=== PATIENT | female | born 1955 | race Caucasian/White ===

== ENCOUNTER → 2016-10-02 | Outpatient (CLI) | payer BC ==
[~2016-10-02] MED LIST: ALAVERT10 M1 PO; AMBIEN PO; AMBIEN10 MG PO; ASPIRIN81 M2 PO; ASPIRINEC PO; BENICAR HCT 20-1 TA1 PO; BENICAR HCT 40-1 TA1 PO; CALCIUM + D 6001 TA1 PO; CERTAGEN PO; CLARITIN10 M3 PO; COUMADIN4 MG PO; COUMADIN5 MG PO; CRESTOR PO; CYANOCOBALAM1000 MCG PO; DEXFOL PO; DIOVAN HCT 160-1 TAB PO; ECOTRIN325 MG PO; GARCINIA CAMBO1 EACH PO; GLUCOSAMIN-CHO1 EACH PO; GLUCOSAMINE & C1 CAP PO; HAIR, SKIN & N1 EAC1 PO; HYDROCODON-ACE1 EAC5 PO; MAGNESIUM250 M1 PO; MOBIC15 MG PO; MULTI-VITAMIN1 EAC1 PO; NORCO 10-325 TA1 TAB PO; OSPHENA60 MG PO; PREMARIN VAG CR45 GM TOP; PREMARIN VAG CR45 GM VAG; PROBIOTIC1 EAC5 PO; STOOL SOFTENER100 M1 PO; TRAMADOL HCL50 M1 PO; VAGIFEM10 MCG VG; VITAMIN C PO; VITAMIN C1000 M2 PO; VOLTAREN75 MG PO
--- NOTE | ~2016-10-02 | CO ---
Unit #: [id number] #: [id number] Patient: RADHA BECKER [id number] [address] [place], [place] [address] [id number] O MR#: [id number] NAME: RADHA BECKER ROOM: Age: 60 Sex: F Admission Date: 10/02/2016 : 1955 Attending Physician: Andrea Baxter M.D. Primary Care Physician: Sabino Tello M.D. Consultation Date: 10/02/2016 CONSULTATION REPORT REASON FOR CONSULTATION Preoperative medical evaluation prior to conversion of unicompartmental knee arthroplasty to right total knee arthroplasty, scheduled by Dr. Baxter for 10/11/2016. HISTORY OF PRESENT ILLNESS The patient is a 60-year-old female, who presents to preprocedural screening for the reasons indicated above. Other than pain in the right knee, she has no other complaints at this time. She has been evaluated by Dr. Baxter and scheduled for the above-referenced procedure. She denies history of myocardial infarction, congestive heart failure, CVA, TIA, diabetes and/or renal failure. She denies shortness of air, dyspnea on exertion, PND, orthopnea, or sleep apnea. Denies lightheadedness, dizziness, vertigo, presyncope, syncope, and/or chronic palpitations. Primary care physician is Dr. Tello. Her last dental exam was 08/2016 with a negative report per the patient. The patient takes antibiotics prior to dental procedure secondary to history of left total knee arthroplasty. PAST MEDICAL HISTORY 1. Latex allergy. 2. Rash. 3. Heart murmur, status post workup approximately two years ago by Dr. Manuel without recommendations for further evaluation. 4. Irritable bowel syndrome with diarrhea. 5. Hyperlipidemia. 6. History of cervical cancer. 7. Insomnia. 8. Hypertension. 9. Allergic rhinitis. PAST SURGICAL HISTORY Colonoscopy for surveillance secondary to first-degree family member with colon cancer, negative results per the patient's report. ALLERGIES Latex allergy; medication allergies; iodinated contrast media, oral and IV, causes a rash. CURRENT MEDICATIONS Crestor 10 mg p.o. at bedtime, aspirin 81 mg p.o. daily, stool softener 100 mg p.o. at bedtime, vitamin C 1000 mg p.o. daily, Ambien 10 mg p.o. at bedtime p.r.n. sleep, Benicar/hydrochlorothiazide 20/12.5 mg tablet one p.o. in the evening, Claritin 10 mg p.o. at bedtime, cyanocobalamin 1000 Unit #: [id number] #: [id number] Patient: RADHA BECKER R mcg p.o. daily, probiotic one capsule p.o. daily, Mobic 15 mg p.o. at bedtime, magnesium 250 mg p.o. daily. 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 She has been an employee at this facility for 40 years. She denies tobacco use or illicit drug use. Consumes three alcoholic drinks weekly. FAMILY HISTORY Per review of Dr. Baxter's office note and confirmation with the patient, father had a history of heart disease and mother had a history of colon cancer. REVIEW OF SYSTEMS Right knee pain and intermittent dependent edema of bilateral lower extremities, resolved with medium compression hose, which she purchases [id number]. A 10-point review of systems is performed and otherwise negative except as indicated under history of present illness and past medical history above. PHYSICAL EXAMINATION GENERAL: A 60-year-old female, awake and alert, in no acute distress. VITAL SIGNS: Temperature 98.6, heart rate 86, respiratory rate 16, blood pressure 143/92, oxygen saturation 99% on room air. HEENT: Atraumatic, normocephalic. Sclerae anicteric. No discharge from eyes, ears, or nares. LYMPH: No preauricular, postauricular, tonsillar, submental, anterior-posterior cervical, supra or infraclavicular adenopathy. ENDOCRINE: No thyromegaly, thyroid nodules, or tenderness. RESPIRATORY: Clear to auscultation in all molina bilaterally without wheezes, rhonchi, or rales. CARDIOVASCULAR: S1, S2. Regular rate and rhythm without murmur or rub. GI: Bowel sounds are positive x4. Soft, nontender, nondistended. EXTREMITIES: No edema, cyanosis, or clubbing. MUSCULOSKELETAL: Strength 5/5 in all extremities bilaterally to flexion and extension. Ambulatory. No obvious muscle atrophy. NEUROLOGIC: Alert and oriented x3. Speech clear. Cranial nerves II through XII are grossly intact. Follows instructions. DIAGNOSTIC STUDIES LABORATORY RESULTS: WBC 5.5, hemoglobin 13.3, hematocrit 40.3, platelet count 293,000. Sodium 140, potassium 4.0, chloride 105, CO2 of 28, glucose 87, BUN 26, creatinine 0.7, calcium 9.0, AST 17, ALT 14, alkaline phosphatase 74, bilirubin total 1.0, total protein 6.7, albumin 4.2. PT 9.9, INR 0.9. Urinalysis; leukocyte esterase trace, nitrite negative. Urine culture not indicated. Blood type O positive. Antibody screen negative. MRSA screen report pending at this time. IMAGING STUDIES: Two-view chest x-ray report pending at this time. CARDIOVASCULAR STUDIES: 12-lead EKG; normal sinus rhythm, low voltage QRS. Borderline ECG tracing reviewed by me. Confirmed report pending at this time. IMPRESSION The patient is a 52-year-old female, who presents to Unit #: [id number] #: [id number] Patient: FRANK BECKERY Hillary preprocedural screening for; 1. Preoperative medical evaluation prior to conversion of unicompartmental knee arthroplasty to right total knee arthroplasty. The patient's [place] Revised Cardiac Risk Index is equal to 0.4%. This represents the patient's perioperative risk of cardiac , fatal or nonfatal myocardial infarction, cardiopulmonary arrest, arrhythmias and/or pulmonary edema. This has been discussed in detail with the patient and she wishes to proceed with surgery as scheduled at this time. 2. History of waking up during surgery. This has been discussed with the patient. She plans to discuss this in detail with her anesthesiologist prior to surgical procedure. 3. Latex allergy. Latex free products will be utilized in care of this patient. 4. History of heart murmur, status post workup from Dr. Manuel. The patient's heart murmur is not audible upon examination today. The patient is asymptomatic. 5. Irritable bowel syndrome with diarrhea, controlled at this time. 6. Hyperlipidemia. 7. History of cervical cancer without history of chemotherapy or radiation therapy. 8. Insomnia. 9. Hypertension. Blood pressure is elevated, but we will monitor the patient's blood pressure perioperatively and adjust medications accordingly. 10. Health maintenance. The patient's last dental exam was in 08/2016. She states a letter of dental clearance will be sent to Dr. Baxter's office. Thank you for allowing us to participate in the care of this patient. We will gladly follow her for postop medical management pending order of Dr. Baxter. Dictated by... Nancy Engle A.P.R.N. for Ileana Saldana/tracy TD: 10/03/2016 05:27 JOB #: [id number] CONSULTATION REPORT Page 1 of 1 X Nancy Engle ART INSTRUCTOR X CONSULTATION REPORT
--- NOTE | ~2016-10-02 | EKG ---
PATIENT: RADHA BECKER UNIT #: [id number] Ventricular Rate: 84 BPM Atrial Rate: 84 BPM P-R Interval: 164 ms QRS Duration: 80 ms Q-T Interval: 388 ms QTC Calculation(Bezet): 458 ms P Atkinson: 62 degrees Calculated R Atkinson: 39 degrees Calculated T Atkinson: 38 degrees Diagnosis Line: Normal sinus rhythm Diagnosis Line: Low voltage QRS Diagnosis Line: Borderline ECG Diagnosis Line: When compared with ECG of 21-DEC-2014 08:20, Diagnosis Line: No significant change was found Diagnosis Line: Confirmed by SERA ARGUETA MD ([id number]) on 10/02/2016 Diagnosis Line: 11:00:36 PM INTERPRETING MD: ELLIE SERRANO
--- NOTE | ~2016-10-02 | CR63 ---
[facility] A Service of [facility] RADIOLOGY TEXT RESULTS PATIENT: RADHA BECKER LOCATION: [facility] : [birth year] UNIT #: [id number] AGE: [address]: Andrea Baxter MD SEX: F ORDER DR: [id number] [facility] [address] [place], [place] [address] [id number] O MR#: [id number] Acc #: [id number] NAME: RADHA BECKER : 1955 SEX: F STUDY DATE/TIME: 10/02/2016 9:34 UNIT: [facility] ROOM: STUDY DESCRIPTION: CR Chest 2 View Attending Physician: Andrea Baxter M.D. Referring Physician: Andrea Baxter M.D. Ordering Physician: Andrea Baxter M.D. Primary Care Physician: Sabino Tello M.D. 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 Preop hardware conversion to total knee prosthesis. Benign essential hypertension. FINDINGS PA and lateral examination of the chest upright shows a good expansion of the parenchyma with a normal distribution of the pulmonary vascularity. There is no indication of congestion, effusion, infiltrate, tumor, or nodular density. The pleural reflections and diaphragmatic contours are normal. The cardiac silhouette and mediastinal anatomy is within normal limits. IMPRESSION Normal chest. Dictated by... Alec Rivera M.D. THIS IS AN ELECTRONICALLY VERIFIED REPORT Alec Rivera M.D. at 10/04/2016 8:17 AM MARTÍNEZ/mg TD: 10/02/2016 17:03 JOB #: [id number] MEDICAL IMAGING REPORT Page 1 of 1 COPY
[2016-10-02 08:27] LABS: HEMATOCRIT 40.3 % (35.0-45.0); HEMOGLOBIN 13.3 gm/dL (12.0-16.0); MEAN CELL VOLUME 89.5 FL (83-96); MEAN CORPUSCULAR HEMOGLOBIN 29.6 PG (28-34); MEAN CORPUSCULAR HGB CONC 33.1 g/dL (30-36); MEAN PLATELET VOLUME 7.4 FL (6.5-11.5); RED BLOOD COUNT 4.5 X10e (3.90-5.30); RED CELL DISTRIBUTION WIDTH 13.1 % (11.0-15.5); WHITE BLOOD COUNT 5.5 X10e3 (4.0-10.5)
[2016-10-02 08:31] LABS: URINE APPEARANCE CLEAR; URINE BILIRUBIN NEG (NEG); URINE BLOOD TRACE (NEG); URINE COLOR YELLOW; URINE GLUCOSE NEG (NEG); URINE KETONE NEG (NEG); URINE LEUKOCYTE ESTERASE TRACE (NEG); URINE NITRATE NEG (NEG); URINE PH 5.5 (5-8); URINE PROTEIN NEG (NEG); URINE SPECIFIC GRAVITY 1.024 (1.003-1.035); URINE UROBILINOGEN 0.2 MG/DL (NEG)
[2016-10-02 08:35] LABS: URBCS1 AUWI 0-2 /[HPF] (0-2); URINE BACTERIA AUWI NEG (NEGATIVE); URINE SQUAMOUS EPITHELIAL CELL NONE SEEN /[HPF]
[2016-10-02 08:40] LABS: INR 0.9; PROTHROMBIN TIME (PATIENT) 9.9 SECONDS (9.6-11.5)
[2016-10-02 08:42] LABS: CULTURE INDICATED? NO
[2016-10-02 08:56] LABS: ALBUMIN SERUM 4.2 g/dL (3.5-5.0); BUN/CREATININE RATIO 37.14; CREATININE SERUM 0.7 mg/dL (0.6-1.4); GLOM FILT RATE Estimated 92.9 mL/min (>60); PROTEIN TOTAL SERUM 6.7 g/dL (6.0-8.3); URINE SOURCE CLEAN CATCH
== END | disposition home or self-care (01) ==
LOC: CAMB 08:04
PROVIDERS: Orthopaedic Surgery
DX: Z01.818 Encounter for other preprocedural examination (principal); M17.11 Unilateral primary osteoarthritis, right knee; T84.092A Other mechanical complication of internal right knee prosthesis, initial encounter; K58.0 Irritable bowel syndrome with diarrhea; E78.5 Hyperlipidemia, unspecified; G47.00 Insomnia, unspecified; I10 Essential (primary) hypertension; Z88.8 Allergy status to other drugs, medicaments and biological substances
CPT/HCPCS: 36415; 71020; 80053; 81003; 85027; 85610; 86850; 86900; 86901; 87070; 93005

== ENCOUNTER 2016-10-11 05:36 | Inpatient (IN) | payer BC ==
--- NOTE | ~2016-10-11 | DS ---
Unit #: [id number] #: [id number] Patient: RADHA BECKER [id number] [facility]. [place], [place] [address] [id number] I MR#: [id number] NAME: RADHA BECKER ROOM: 456 Age: 60 Sex: F Admission Date: 10/11/2016 : 1955 Discharge Date: 10/12/2016 Attending Physician: Andrea Baxter M.D. Referring Physician: Andrea Baxter M.D. Primary Care Physician: Sabino Tello M.D. DISCHARGE SUMMARY PROCEDURES PERFORMED Conversion unicompartmental replacement to right total knee. HOSPITAL COURSE The patient was admitted on 10/11/2016 and taken to the operating room, where she underwent the above procedure. Postoperatively she had a moderate amount of pain. Her neurovascular exam is intact. The dressing is intact. She will do therapy this morning and be discharged home later today as long as her pain is under control. Her hemoglobin is 11.5, INR 1.4. DISCHARGE MEDICATION She will be discharged on 5 mg of Coumadin daily. FOLLOWUP 1. Will check her pro time tomorrow and Sunday and adjust the dose appropriately. 2. Her dinah are to be removed two weeks postoperative. ACTIVITY She is weightbearing as tolerated. DISCHARGE CONDITION Improved. Dictated by... Ileana Sadler/nikolai TD: 10/12/2016 12:18 JOB #: [id number] Unit #: [id number] #: [id number] Patient: RADHA BECKER DISCHARGE SUMMARY Page 1 of 1 X Andrea Baxter MD DISCHARGE SUMMARY
--- NOTE | ~2016-10-11 | OR ---
Unit #: [id number] #: [id number] Patient: RADHA BECKER [id number] [address] [place], [place] [address] [id number] I MR#: [id number] NAME: RADHA BECKER ROOM: 456 Date of Procedure: 10/11/2016 Admission Date: 10/11/2016 Surgeon: Andrea Baxter M.D. : 1955 Attending Physician: Andrea Baxter M.D. Referring Physician: Andrea Baxter M.D. Primary Care Physician: Sabino Tello M.D. OPERATIVE REPORT PREOPERATIVE DIAGNOSIS Failed unicompartmental knee, right knee. POSTOPERATIVE DIAGNOSIS Failed unicompartmental knee, right knee. PROCEDURE PERFORMED Conversion to a right total knee. ASSISTANTS Concetta Bird and Marly Anthony. ANESTHESIA Adductor canal block plus general. ESTIMATED BLOOD LOSS 100 to 150 mL. INDICATIONS FOR PROCEDURE This is a 60-year-old, who had an unicompartmental knee done and she has gone on to develop lateral compartment arthritis. She is brought to the hospital today for conversion to a right total knee. DESCRIPTION OF PROCEDURE The patient was brought to the operating room, given an adductor canal block and 2 g of Kefzol. The Kefzol will be continued postop, but discontinued within 23 hours the start time of surgery. She was then given a general anesthetic. Tourniquet was placed around the right thigh. The right leg was prepped and draped in a sterile fashion. The previous skin incision was used extended slightly proximally and distally. The subcutaneous dissected away and a medial arthrotomy was performed. Clear fluid was encountered. This was cultured. We then subluxed the patella laterally. The lateral compartment had exposed bone. The medial compartment and the tibial and femoral components were in good position and were not loose. We then removed the femoral component with a 0.5-inch straight osteotome. Once this was done, the tibial component was removed by using the oscillating saw and cutting it just below the component. The intramedullary guide was used and a 6-degree valgus cut was made on the distal femur. The femur was sized at a 3. The anterior-posterior cutting block applied. Rotation was checked in the knee. Anterior and posterior cuts were made along with the chamfer cuts. Proximal tibial cut was made and it was sized at a 2.5. Trial femur was applied. The drill holes were Unit #: [id number] #: [id number] Patient: RADHA BECKER made for lugs on the femoral component. Trial tibia was applied. We started with a 10 insert, but quickly went to a 12.5. This gave us excellent stability in extension and flexion. Rotation of the tibia was marked and the external alignment guide showed appropriate alignment of the limb. The patella was grasped with 2 towel clips, measured 20 mm thick, cut smooth at 13, and a 35 patella was the appropriate size. The 3 drill holes were made. Trial patella applied and it tracked properly. We then removed all the trials, used the drill and punch for the tibial tray. The knee was irrigated and dried while the cement was mixed. Then, all 3 components were cemented simultaneously. Once again, it was a size 3 femur, size 2.5 tibial tray, and a 35 patella from the Elimiuy PFC Sigma Knee system. After the cement was hardened, it was judged that the 12.5 insert was the appropriate thickness, so this was opened and applied. The periosteum was injected with ropivacaine as was the posterior capsule prior to positioning the final insert. The tourniquet was released. Hemostasis was obtained. The wound was irrigated with a bacitracin wash and Betadine wash. The rest of the ropivacaine mixture was injected and then the wound was closed using 0 Ethibond in the arthrotomy, 0 and 2-0 Vicryl in the subcutaneous, and dinah in the skin. Dictated by... Ileana Sadler/tracy TD: 10/16/2016 22:19 JOB #: [id number] OPERATIVE REPORT Page 1 of 1 X Andrea Baxter MD PROCEDURE OPERATIVE NOTE
[~2016-10-11 05:36] MED LIST changes: -AMBIEN10 MG PO; -ASPIRIN81 M2 PO; -CLARITIN10 M3 PO; -COUMADIN5 MG PO; -CRESTOR PO; -CYANOCOBALAM1000 MCG PO; -HYDROCODON-ACE1 EAC5 PO; -MAGNESIUM250 M1 PO; -PROBIOTIC1 EAC5 PO; -STOOL SOFTENER100 M1 PO; -VITAMIN C1000 M2 PO
[2016-10-11] MEDS ORDERED: VITAMIN C1000 M2 PO (06:23)
[2016-10-11] MEDS ORDERED: AMBIEN10 MG PO (06:23)
[2016-10-11] MEDS ORDERED: STOOL SOFTENER100 M1 PO (06:24)
[2016-10-11] MEDS ORDERED: ASPIRIN81 M2 PO (06:24)
[2016-10-11] MEDS ORDERED: CRESTOR PO (06:24)
[2016-10-11 06:36] LABS: PROTHROMBIN TIME (PATIENT) 10.3 SECONDS (9.6-11.5)
[2016-10-11] MEDS ORDERED: CLARITIN10 M3 PO (08:36)
[2016-10-11] MEDS ORDERED: CYANOCOBALAM1000 MCG PO (08:39)
[2016-10-11] MEDS ORDERED: PROBIOTIC1 EAC5 PO (08:42)
[2016-10-11] MEDS ORDERED: MOBIC15 MG PO (09:07)
[2016-10-11] MEDS ORDERED: MAGNESIUM250 M1 PO (09:09)
[2016-10-12 03:00] LABS: HEMOGLOBIN 11.7 gm/dL (12.0-16.0)
[2016-10-12 03:12] LABS: INR 1.4; PROTHROMBIN TIME (PATIENT) 15.1 SECONDS (9.6-11.5)
[2016-10-12 03:46] LABS: CALCIUM SERUM 8.5 mg/dL (8.4-10.2); CREATININE SERUM 0.6 mg/dL (0.6-1.4); GLOM FILT RATE Estimated 97.7 mL/min (>60); POTASSIUM 3.4 mmol/L (3.5-5.1)
[2016-10-12] MEDS ORDERED: COUMADIN5 MG PO (13:26)
[2016-10-12] MEDS ORDERED: HYDROCODON-ACE1 EAC5 PO (13:27)
== END 2016-10-12 15:25 | disposition home health service (06) | DRG 468 ==
LOC: CSUR 05:36 → CPACUOF 06:45 → C4B 10:30
PROVIDERS: Nurse Practitioner; Orthopaedic Surgery
PROC: 0SPC0JZ Removal of Synthetic Substitute from Right Knee Joint, Open Approach (ICD-10-PCS; 2016-10-11)
PROC: 0SRC0J9 Replacement of Right Knee Joint with Synthetic Substitute, Cemented, Open Approach (ICD-10-PCS; principal; 2016-10-11 07:00)
DX: T84.092A Other mechanical complication of internal right knee prosthesis, initial encounter (principal); I10 Essential (primary) hypertension; E78.5 Hyperlipidemia, unspecified; K58.0 Irritable bowel syndrome with diarrhea; G47.00 Insomnia, unspecified; Z85.41 Personal history of malignant neoplasm of cervix uteri; Z91.041 Radiographic dye allergy status; Z91.040 Latex allergy status; E87.6 Hypokalemia; J30.9 Allergic rhinitis, unspecified
CPT/HCPCS: 80048; 83735; 85014; 85018; 85610; 94760; 97110; 97116; 97161; 97530; C1776; J0131; J0171; J0690; J0735; J1100; J1170; J1885; J2250; J2405; J2795; J3010

== ENCOUNTER → 2017-03-01 | Outpatient (CLI) | payer BC ==
[~2017-03-01] MED LIST changes: +AMBIEN10 MG PO; +ASPIRIN81 M2 PO; +CLARITIN10 M3 PO; +COUMADIN5 MG PO; +CRESTOR PO; +CYANOCOBALAM1000 MCG PO; +HYDROCODON-ACE1 EAC5 PO; +MAGNESIUM250 M1 PO; +PROBIOTIC1 EAC5 PO; +STOOL SOFTENER100 M1 PO; +VITAMIN C1000 M2 PO
--- NOTE | ~2017-03-01 | MY29 ---
[facility] A Service of [facility] RADIOLOGY TEXT RESULTS PATIENT: RADHA BECKER LOCATION: [facility] : [birth year] UNIT #: [id number] AGE: [address]: Sabino Tello MD SEX: F ORDER DR: [id number] [facility] [address] [place], [place] [address] [id number] O MR#: [id number] Acc #: [id number] NAME: RADHA BECKER : 1955 SEX: F STUDY DATE/TIME: 03/01/2017 15:03 UNIT: [facility] ROOM: STUDY DESCRIPTION: MY KATERIN SCREENING W/ CAD BILAT Attending Physician: Sabino Tello M.D. Referring Physician: Jess Gutierrez M.D. Ordering Physician: Sabino Tello M.D. Primary Care Physician: Sabino Tello M.D. MEDICAL IMAGING REPORT This report is preliminary unless electronic signature is present EXAM Bilateral digital screening mammogram with CAD. COMPARISON February 24, 2016, July 15, 2015, February 09, 2015, February 05, 2014, January 13, 2013, November 23, 2011, November 15, 2010, November 11, 2009. INDICATIONS Breast cancer screening. 61-year-old asymptomatic female who reports a great aunt with breast cancer. FINDINGS There are scattered fibroglandular densities. There are no suspicious findings in the left breast. At the junction of middle and posterior thirds of the 2 o'clock right breast there is suggestion of a developing mass measuring 5 mm x 5 mm x 5 mm. There are no suspicious findings in the left breast. IMPRESSION 1. No mammographic evidence of malignancy in the left breast. Suspected developing right breast mass. Further evaluation with spot compression CC and spot compression MLO views is recommended, most likely followed by right breast ultrasound. Patients over the age of 40 are entered into a reminder system with target due date for the next mammogram. A result letter will also be sent to the patient. BIRADS: 0 Incomplete; need additional imaging evaluation and/or prior mammograms for comparison. [facility] A Service of [facility] RADIOLOGY TEXT RESULTS PATIENT: RADHA BECKER LOCATION: [facility] : [birth year] UNIT #: [id number] AGE: [address]: Sabino Tello MD SEX: F ORDER DR: Dictated by... Shravan Frankel M.D. THIS IS AN ELECTRONICALLY VERIFIED REPORT Shravan Frankel M.D. at 03/06/2017 4:28 PM Fab TD: 03/01/2017 21:22 JOB #: [id number] MEDICAL IMAGING REPORT Page 1 of 1 COPY
== END | disposition home or self-care (01) ==
LOC: CWCC 02-22 15:30
DX: Z12.31 Encounter for screening mammogram for malignant neoplasm of breast (principal); Z80.3 Family history of malignant neoplasm of breast
CPT/HCPCS: G0202

== ENCOUNTER → 2017-03-15 | Outpatient (CLI) | payer BC ==
--- NOTE | ~2017-03-15 | US24 ---
[facility] A Service of [facility] RADIOLOGY TEXT RESULTS PATIENT: RADHA BECKER LOCATION: [facility] : 53 UNIT #: [id number] AGE: [address]: Sabino Tello MD SEX: F ORDER DR: [id number] [facility] [address] [place], [place] [address] [id number] O MR#: [id number] Acc #: [id number] NAME: RADHA BECKER : 1955 SEX: F STUDY DATE/TIME: 03/15/2017 8:33 UNIT: [facility] ROOM: STUDY DESCRIPTION: US Breast Unilateral Attending Physician: Sabino Tello M.D. Referring Physician: Sabino Tello M.D. Ordering Physician: Sabino Tello M.D. Primary Care Physician: Sabino Tello M.D. MEDICAL IMAGING REPORT This report is preliminary unless electronic signature is present EXAM Right breast ultrasound INDICATION Focal asymmetry in the right breast on screening mammogram. PROCEDURE Targeted ultrasound evaluation of the right breast at the 3 o'clock position. COMPARISON Concurrently performed diagnostic mammogram. FINDINGS/IMPRESSION Refer to the separately dictated diagnostic mammogram for workup findings and recommendations. BIRADS 3 - F6 Dictated by... Trevor Moore M.D. THIS IS AN ELECTRONICALLY VERIFIED REPORT Trevor Moore M.D. at 03/16/2017 2:41 PM Alvin TD: 03/15/2017 10:47 JOB #: [id number] MEDICAL IMAGING REPORT Page 1 of 1 COPY
--- NOTE | ~2017-03-15 | MY25 ---
[facility] A Service of [facility] RADIOLOGY TEXT RESULTS PATIENT: RADHA BECKER LOCATION: [facility] : 51 UNIT #: [id number] AGE: [address]: Sabino Tello MD SEX: F ORDER DR: [id number] [facility] [address]. [place], [place] [address] [id number] O MR#: [id number] Acc #: [id number] NAME: RADHA BECKER : 1955 SEX: F STUDY DATE/TIME: 03/15/2017 8:03 UNIT: [facility] ROOM: STUDY DESCRIPTION: FANG KATERIN FLOWER W/ CAD UNI RT Attending Physician: Sabino Tello M.D. Referring Physician: Sabino Tello M.D. Ordering Physician: Sabino Tello M.D. Primary Care Physician: Sabino Tello M.D. MEDICAL IMAGING REPORT This report is preliminary unless electronic signature is present EXAM Right digital diagnostic mammogram INDICATION Focal asymmetry in the right breast on screening mammogram. PROCEDURE A true lateral view of the right breast. Spot compression views of the right breast in the CC and MLO projections. Images obtained on a digital mammography unit. COMPARISON Screening mammogram, 03/01/2017 FINDINGS The focal asymmetry in the right breast effaces on all images except for 1 CC view. There is some persistent density in the region measuring approximately 3 mm on the CC spot compression view. There is no associated microcalcification. Targeted right breast ultrasound shows no sonographic abnormality. IMPRESSION Small focal asymmetry in the right breast on screening mammogram is only seen on 1 CC spot compression view and is favored to represent normal breast tissue. There is no ultrasound correlate. Recommend patient return for a 6-month followup right diagnostic mammogram. Patients over the age of 40 are entered into a reminder system with target due date for the next mammogram. A result letter will also be sent to the patient. BIRADS: 3- F6 [facility] A Service of [facility] RADIOLOGY TEXT RESULTS PATIENT: RADHA BECKER LOCATION: [facility] : 53 UNIT #: [id number] AGE: [address]: Sabino Tello MD SEX: F ORDER DR: Dictated by... Trevor Moore M.D. THIS IS AN ELECTRONICALLY VERIFIED REPORT Trevor Moore M.D. at 03/16/2017 2:37 PM Alvin TD: 03/15/2017 10:31 JOB #: [id number] MEDICAL IMAGING REPORT Page 1 of 1 COPY
== END | disposition home or self-care (01) ==
LOC: CMAM 03-14 12:30
DX: N63 Unspecified lump in breast (principal); N64.89 Other specified disorders of breast
CPT/HCPCS: 76641; G0206